=== PATIENT | male | born 1985 | race African-American/Black ===

== ENCOUNTER 2024-12-24 22:07 | Emergency (ER) | payer SELFPAY ==
[~2024-12-24] VITALS: Ht 177.8 cm; Wt 82.0 kg
[2024-12-24 22:10] VITALS: O2SAT 100
[2024-12-24 22:54] LABS: BASOPHILS % 0.4 % (0.0-2.0); EOSINOPHILS % 1.1 % (0.0-5.0); HEMATOCRIT. 40.6 % (42.0-52.0); HEMOGLOBIN. 13.2 g/dL (14.0-18.0); MEAN CORPUSCULAR HEMOGLOBIN 29.4 pg (28.0-32.0); MEAN CORPUSCULAR HGB CONC 32.6 g/dL (31.0-37.0); MEAN CORPUSCULAR VOLUME 90.3 fL (80.0-94.0); MEAN PLATELET VOLUME 7.5 fl (7.4-10.4); MONOCYTES % 8.3 % (2.0-8.0); NEUTROPHILS % 60.2 % (40.0-76.0); PLATELET 403 x1000/uL (130-400); RED BLOOD CELL COUNT 4.49 mill/uL (4.7-6.1); RED CELL DISTRIBUTION WIDTH 13.3 % (11.6-14.6)
[2024-12-24 23:01] LABS: CHLORIDE 105 mEq/L (98-107); POTASSIUM 3.6 mEq/L (3.5-5.1); SODIUM 136 mEq/L (136-145)
[2024-12-24 23:02] LABS: CARBON DIOXIDE 28 mEq/L (21-32)
[2024-12-24 23:03] LABS: CALCIUM 9.9 mg/dL (8.7-10.4)
[2024-12-24 23:06] LABS: *AMPHETAMINES SCREEN URINE NEGATIVE (NEGATIVE); *BARBITURATES SCREEN URINE NEGATIVE (NEGATIVE); *BENZODIAZEPINES SCREEN URINE NEGATIVE (NEGATIVE); *COCAINE SCREEN URINE NEGATIVE (NEGATIVE); METHADONE URINE SCREEN NEGATIVE (NEGATIVE)
[2024-12-24 23:07] LABS: CANNABINOID URINE SCREEN NEGATIVE (NEGATIVE); ECSTASY MDMA SCREEN URINE NEGATIVE (NEGATIVE); OPIATES URINE SCREEN NEGATIVE (NEGATIVE); PHENCYCLIDINE URINE SCREEN NEGATIVE (NEGATIVE)
[2024-12-24 23:07] LABS: CREATININE 0.9 mg/dL (0.6-1.3)
[2024-12-24 23:08] LABS: ETHANOL BLOOD < 10 mg/dL (<10); GLUCOSE 81 mg/dL (70-105); UREA NITROGEN BLOOD 11 mg/dL (9-23)
[2024-12-24 23:09] LABS: ACETAMINOPHEN < 2 ug/mL (10-30)
[2024-12-25] MEDS: PENICILLIN G BENZATHINE 2,400,000 UNITS/4ML SYR IM ONE (00:08)
[2024-12-25 10:00] VITALS: BP 110/59; PULSE 72; RESP 16; TEMP 36.7; O2SAT 100
[2024-12-25 13:10] LABS: CLARITY URINE CLEAR (CLEAR); COLOR URINE DARK YELLOW (YELLOW); GLUCOSE URINE NEGATIVE (NEGATIVE); KETONES URINE TRACE (NEGATIVE); LEUKOCYTE ESTERASE URINE 1+ (NEGATIVE); NITRITE URINE NEGATIVE (NEGATIVE); OCCULT BLOOD URINE NEGATIVE (NEGATIVE); PH URINE 6.5 (4.5-8.0); PROTEIN URINE TRACE (NEGATIVE); SPECIFIC GRAVITY URINE 1.033 (1.005-1.030)
[2024-12-25 13:31] LABS: MUCUS URINE 1+ /lpf (NONE/TRACE); SQUAMOUS EPITHELIAL CELL URINE 1+ /lpf (RARE/1+)
[2024-12-25 13:33] LABS: WBC URINE 15-25 /hpf (0-2)
[2024-12-25 13:34] LABS: BACTERIA URINE 2+; RBC URINE 0-2 /hpf (0-2)
== END 2024-12-25 11:44 | disposition home or self-care (01) ==
LOC: ER 22:07
DX: Z00.8 Encounter for other general examination (principal); F20.9 Schizophrenia, unspecified; Z59.01 Sheltered homelessness; Z79.899 Other long term (current) drug therapy
CPT/HCPCS: 80305; 80048; 81003; 80307; 80329; 80320; 85025; 87086; 87077; 36415; 99285; 96372; J0561; G0480